=== PATIENT | male | born 1995 | race Caucasian/White ===

== ENCOUNTER 2019-11-18 20:35 | Emergency (ER) | payer SELFPAY ==
[~2019-11-18] VITALS: Ht 175.3 cm; Wt 57.2 kg
[2019-11-18 20:39] VITALS: Ht 175.3 cm; Wt 57.2 kg
[2019-11-18 21:44] VITALS: BP 117/76
== END 2019-11-18 21:44 | disposition home or self-care (01) ==
LOC: ED 20:35
DX: K08.89 Other specified disorders of teeth and supporting structures (principal)